=== PATIENT | female | born 1975 | race Caucasian/White ===

== ENCOUNTER 2023-01-02 09:03 | Emergency (ER) | payer OTHER, SELFPAY ==
[2023-01-02 09:12] VITALS: BP 157/88; PULSE 104; RESP 18; TEMP 36.4; O2SAT 100; BMI 32.1
--- NOTE | 2023-01-02 10:03 | CRLHL7_ITS ---
For Patients: As a result of the Cures Act, medical imaging exams and procedure reports are released immediately into your electronic medical record. You may view this report before your referring provider. If you have questions, please contact your health care provider. INDICATION: RT RIB/CHEST WALL PAIN TECHNIQUE: Chest 2 views COMPARISON: None FINDINGS: Postop changes lower cervical spine. Small calcified nodules within the right middle lobe. No pleural effusion or infiltrate. No fracture. Cardiac silhouette normal. IMPRESSION: No acute findings. Dictated by Edward Ballard MD @ 01/02/2023 11:18:19 AM (Electronically Signed)
--- NOTE | 2023-01-02 10:05 | ED.GENADULT ---
HPI - General Adult General Time Seen by Provider: 10:05 Date Seen: 01/02/23 Chief complaint: Abdominal Pain Stated complaint: abdominal pain Time Seen by Provider: 01/02/23 09:51 Source: patient Mode of arrival: ambulatory Limitations: no limitations History of Present Illness HPI narrative: 47 year white female with a largely unremarkable past medical history presents with 2 day history of right lower rib cage area pain. ?feels like it is under my rib on the right.? Patient does experience worsening pain with deep breathing or motion. She recently went back to school as employment and does not recall any trauma or injury or lifting issues. Continues to bother her. She has had no skin rashes, no shortness of breath no fevers or chills. She does not have symptoms of COVID or upper respiratory symptoms but has had no cough. She denies anterior chest pain. Denies leg swelling or edema. Related Data Previous Rx's Medication Instructions Recorded ketorolac 10 mg tablet 10 mg PO Q8H PRN pain 3 days #10 01/02/23 tabs prednisone 20 mg tablet 20 mg PO BID #10 tabs 01/02/23 Allergies Allergy/AdvReac Type Severity Reaction Status Date / Time No Known Drug Allergies Allergy Verified 01/02/23 09:16 Review of Systems Status of ROS: Reports: 6 or more systems reviewed and unremarkable except as noted in History and below [facility] Social History Smoking Status: Current every day smoker Do you use any of these nicotine containing products: None How often do you have a drink containing alcohol: monthly or less AUDIT-C Alcohol total score: 1 Non-prescribed substance use: denies use Exam Narrative: Exam Narrative: Objective: Vital signs show elevated blood pressure, otherwise unremarkable HEENT is within normal limits, no facial asymmetry Neck is supple chest is significant for some wheezing at the bases bilaterally, no rales, good air exchange Heart rhythm regular heart murmur Abdomen obese benign nontender The chest wall shows some mild tenderness to lower chondral margin on the right that is consistent with her pain. Extremities are no edema, neurologic nonfocal, good peripheral perfusion noted Const: Vital Signs, click to edit/add: Vital Signs - 24 hr 01/02/23 09:12 01/02/23 10:43 01/02/23 11:06 Temperature 97.6 F Pulse Rate [Right Pulse Oximeter] 104 H 88 92 Respiratory Rate 18 16 Blood Pressure [Ri t Upper Arm] 157/88 H 124/88 141/95 H Pulse Oximetry 100 98 99 Oxygen Delivery Me thod Room Air Room Air Room Air Course Vital Signs Vital signs: Initial Vital Signs Temperature 97.6 F 01/02/23 09:12 Temperature Source Temporal Artery Scan 01/02/23 09:12 Pulse Rate 104 H 01/02/23 09:12 Respiratory Rate 18 01/02/23 09:12 Blood Pressure 157/88 H 01/02/23 09:12 Blood Pressure Mean 111 H 01/02/23 09:12 Blood Pressure Position Sitting 01/02/23 09:12 Pulse Oximetry 100 01/02/23 09:12 Oxygen Delivery Method Room Air 01/02/23 09:12 Vital Signs Temperature 97.6 F 01/02/23 09:12 Pulse Rate 104 H 01/02/23 09:12 Respiratory Rate 18 01/02/23 09:12 Blood Pressure 157/88 H 01/02/23 09:12 Pulse Oximetry 100 01/02/23 09:12 Oxygen Delivery Method Room Air 01/02/23 09:12 Temperature 97.6 F 01/02/23 09:12 Pulse Rate 92 01/02/23 11:06 Respiratory Rate 16 01/02/23 10:43 Blood Pressure 141/95 H 01/02/23 11:06 Pulse Oximetry 99 01/02/23 11:06 Oxygen Delivery Method Room Air 01/02/23 11:06 Medical Decision Making [facility] Narrative Medical decision making narrative: [age] year white female healthy patient with 2 day history of right lower rib cage lower chest wall pain. Possible pleurisy, rule out PE, rule out pneumonia. Patient does have some mild wheezing, and could have her breast for infection, will also check COVID/influenza/RSV. IV will be established patient will get IV pain medicine for morphin 2 mg IV and Toradol 30 mg IV. Will give some normal saline fluid. Disposition pending findings above. Addendum 11:36 a.m. patient's EKG by my read shows normal sinus rhythm no acute ST T wave changes, troponin is negative, D-dimer is negative, lab studies are all reassuring. Patient had chest x-ray looks unremarkable. At this point I think the patient go home with some anti-inflammatory think she has a pleurisy or pleuritic type component to her chest wall pain. I think she can do prednisone 20 mg b.i.d. for the next 5 days will give her 50 mg now and she can start 20 tomorrow, would also give her some Toradol 10 mg t.i.d. over the next 3 days. Light activity, return to primary care if problems or concerns, return to ED sooner worsening or changes. She was comfortable this plan. Lab Data Labs: Lab Results 01/02/23 01/02/23 Range/Units 10:04 10:20 WBC 8.91 (4.50-11.00) K/uL RBC 4.64 (4.00-5.20) m/uL Hgb 14.4 (12.0-16.0) gm/dL Hct 43.1 (33.0-51.0) % MCV 93 (80-100) fL MCH 31 (26-34) pg MCHC 33 (32-36) gm/dL RDW Coeff of Tres 13.0 (11.5-15.5) % Plt Count 321 (140-440) K/uL Neut % (Auto) 61.0 (42.0-72.0) % Lymph % (Auto) 29.3 (20-44) % Barren % (Auto) 8.4 (0.0-11.0) % Eos % (Auto) 0.9 (0.0-7.0) % Baso % (Auto) 0.3 (0.0-3.0) % Neut # (Auto) 5.43 (1.7-7.0) K/uL Lymph # (Auto) 2.61 (0.90-2.90) K/uL Barren # (Auto) 0.70 (0.00-0.90) K/UL Eos # (Auto) 0.08 (0.00-0.50) K/uL Baso # (Auto) 0.03 (0.00-0.30) K/uL Abs Immat Gran (auto) 0.01 (0.00-0.30) K/uL Imm/Tot Granulo (auto) 0.1 % D-Dimer Quant (PE/DVT) < 0.27 (0.00-0.50) ug/ml Sodium 141 (135-149) mmol/L Potassium 4.2 (3.6-5.1) mmol/L Chloride 107 (96-114) mmol/L Carbon Dioxide 24 (20-32) mmol/L Anion Gap 10 (7-15) mEq/L BUN 20 (5-24) mg/dL Creatinine 0.6 (0.5-1.5) mg/dL Estimated Creat Clear 110.30 Estimated GFR 110 ml/min Glucose 99 (60-115) mg/dL Calcium 9.7 (8.4-10.6) mg/dL Total Bilirubin 0.4 (0.1-1.5) mg/dL Direct Bilirubin 0.2 (0.0-0.5) mg/dL AST 26 (12-35) U/L ALT 24 (4-35) U/L Alkaline Phosphatase 106 (40-150) U/L C-Reactive Protein 1.0 (0.5-1.0) mg/dL Total Protein 8.0 (6.0-8.3) g/dL Albumin 4.4 (3.3-5.0) g/dL SARS-CoV-2 (PCR) Negative SARS-CoV-2 (Negative) Influenza Type A (PCR) Negative PCR FLU A (Negative) Influenza Type B (PCR) Negative PCR FLU B (Negative) RSV (PCR) Negative PCR RSV (Negative) POC Troponin I 0.00 L (0.01-0.04) ng/ml Discharge Plan Discharge Clinical Impression: Chest wall pain, Acute bronchospasm Patient Disposition: Home w/ Parent or Adult Condition: Improved Additional Instructions: Light activity for 2-3 days, return to primary care at that time if not improving or return to ED if worse sooner. Would use the prednisone and Toradol as prescribed, may take Tylenol in addition if needed, would recommend light activity, push fluids, and return if problems or concerns. Activity Level: Light activity Discharge Diet: Regular Prescriptions: New prednisone 20 mg tablet 20 mg PO BID Qty: 10 0RF ketorolac 10 mg tablet 10 mg PO Q8H PRN (Reason: pain) 3 Days Qty: 10 0RF Stand Alone Forms: MyHealth Info Instructions
[2023-01-02 10:30] LABS: Basophils Absolute Auto 0.03 K/uL (0.00-0.30); Basophils Percent Auto 0.3 % (0.0-3.0); Eosinophils Absolute Auto 0.08 K/uL (0.00-0.50); Eosinophils Percent Auto 0.9 % (0.0-7.0); Hematocrit 43.1 % (33.0-51.0); Hemoglobin* 14.4 gm/dL (12.0-16.0); Immature Granulocytes Abs Auto 0.01 K/uL (0.00-0.30); Immature Granulocytes Pct Auto 0.1 %; Lymphocytes Absolute Auto 2.61 K/uL (0.90-2.90); Lymphocytes Percent Auto 29.3 % (20-44); Mean Corpuscular HGB Conc 33 gm/dL (32-36); Mean Corpuscular Hemoglobin 31 pg (26-34); Mean Corpuscular Volume 93 fL (80-100); Monocytes Percent Auto 8.4 % (0.0-11.0); Neutrophils Absolute Auto 5.43 K/uL (1.7-7.0); Platelet Count* 321 K/uL (140-440); Red Blood Count 4.64 m/uL (4.00-5.20); White Blood Count* 8.91 K/uL (4.50-11.00)
[2023-01-02] MEDS: 0.9 % SODIUM CHLORIDE 500 ML 500 ML IV (10:39)
[2023-01-02] MEDS: KETOROLAC 30 MG/ML inj IVP (10:39)
[2023-01-02 10:43] VITALS: BP 124/88; PULSE 88; RESP 16; O2SAT 98
[2023-01-02 10:44] LABS: Slide Review Reflex No
[2023-01-02 10:51] LABS: Chloride* 107 mmol/L (96-114); Potassium* 4.2 mmol/L (3.6-5.1); Sodium* 141 mmol/L (135-149)
[2023-01-02 10:52] LABS: Albumin* 4.4 g/dL (3.3-5.0)
[2023-01-02 10:53] LABS: Creatinine* 0.6 mg/dL (0.5-1.5); Estimated Glomerular Filt Rate 110 ml/min
[2023-01-02 10:54] LABS: Anion Gap 10 mEq/L (7-15); Blood Urea Nitrogen* 20 mg/dL (5-24); Calcium* 9.7 mg/dL (8.4-10.6); Carbon Dioxide* 24 mmol/L (20-32); Glucose* 99 mg/dL (60-115)
[2023-01-02 10:55] LABS: Alanine Aminotransferase* 24 U/L (4-35); Alkaline Phosphatase* 106 U/L (40-150); Aspartate Amino Transferase* 26 U/L (12-35); Bilirubin Direct* 0.2 mg/dL (0.0-0.5); Bilirubin Total* 0.4 mg/dL (0.1-1.5)
[2023-01-02] MEDS: MORPHINE 4 MG/ML INJ 2 MG IVP (10:59)
[2023-01-02 11:06] VITALS: BP 141/95; PULSE 92; O2SAT 99
[2023-01-02 11:09] LABS: PCR FLU A Negative PCR FLU A (Negative); PCR FLU B Negative PCR FLU B (Negative); PCR RSV Negative PCR RSV (Negative)
[2023-01-02 11:12] LABS: SARS PCR* Negative SARS-CoV-2 (Negative)
[2023-01-02 11:18] LABS: D Dimer Quantitative* < 0.27 ug/ml (0.00-0.50)
[2023-01-02] MEDS: predniSONE 10 MG TABLET 50 MG PO (11:59)
== END 2023-01-02 12:07 | disposition home or self-care (01) ==
PROVIDERS: Emergency Provider Family Medicine; PCP Physician Assistant
DX: R07.89 Other chest pain (principal); J98.01 Acute bronchospasm
CPT/HCPCS: 36415; 71046; 80048; 80076; 84484; 85025; 85379; 86140; 87631; 93005; 96361; 96374; 96375; 99284; 99285; J1885; J2270; J7120; J7512